=== PATIENT | male | born 1985 | race Caucasian/White ===

== ENCOUNTER 2025-02-04 16:58 | Observation (INO) | payer SELFPAY ==
[2025-02-04] MEDS ORDERED: Lidocaine 10 ML, Aluminum & Magnesium Hydroxide 30 ML SSW SCH (18:00)
[2025-02-04 18:02] LABS: #Basophils 0.05 10x3/uL (0.0-0.2); #Eosinophils Less than 0.03 10x3/uL (0.0-0.5); #Monocytes 0.62 10x3/uL (0.0-1.1); #Neutrophils 10.55 10x3/uL (1.5-8.4); %Basophils 0.4 % (0.0-2.0); %Eosinophils 0.0 % (0.0-6.0); %Lymphocytes 10.1 % (18.0-47.0); %Monocytes 5.0 % (0.0-10.0); %Neutrophils 84.2 % (40.0-75.0); Hematocrit 51.4 % (38.8-50.0); Hemoglobin 17.9 g/dL (13.5-17.5); Mean Corpuscular Hemoglobin 30.4 pg (27.0-33.0); Mean Corpuscular Volume 87.3 fL (81.2-95.1); Platelet Count 327 10x3/uL (150-450); Red Blood Cell (RBC) Count 5.89 10x6/uL (4.32-5.72); White Blood Cell (WBC) Count 12.52 10x3/uL (3.5-10.5)
[2025-02-04] MEDS ORDERED: Pantoprazole 40 MG VIAL ONE (18:02)
[2025-02-04] MEDS ORDERED: Ondansetron PF 4 MG/2 ML Vial ONE (18:02)
[2025-02-04] MEDS ORDERED: Lidocaine Viscous Sol 2% 15 ml UD Cup ONE (18:03)
[2025-02-04] MEDS ORDERED: Mag-Al 1200 mg/1200 mg/30 ML UDCUP ONE (18:03)
[2025-02-04 18:14] LABS: INR-International Normal Ratio 1.1; Prothrombin Time 11.5 sec (9.5-12.1)
[2025-02-04 18:20] LABS: ALT (SGPT) 24 U/L (Less than 45); AST (SGOT) 30 U/L (11-34); Albumin 4.8 g/dL (3.1-4.5); Alkaline Phosphatase 96 U/L (40-110); Anion Gap 20 mmol/L (10-20); BUN (Urea Nitrogen) 16 mg/dL (8.9-20.6); Bilirubin, Total 0.8 mg/dL (0.3-1.2); Calc. Creatinine Clearance 0 mL/min (70-130); Calcium 10.5 mg/dL (7.8-10.44); Carbon Dioxide 25 mmol/L (22-29); Chloride 98 mmol/L (98-107); Globulin 4.5 g/dL (2.4-3.5); Glucose 90 mg/dL (70-105); Lipase 24 U/L (8-78); Magnesium 2.2 mg/dL (1.6-2.6); Potassium 4.8 mmol/L (3.5-5.1); Sodium 138 mmol/L (136-145)
[2025-02-04 18:45] LABS: Troponin I Less than 0.010 ng/mL (< 0.028)
[2025-02-04] MEDS ORDERED: Ondansetron PF 4 MG/2 ML Vial IVP PRN (20:57)
[2025-02-05 06:29] LABS: Anion Gap 12 mmol/L (10-20); BUN (Urea Nitrogen) 13 mg/dL (8.9-20.6); Calc. Creatinine Clearance 102 mL/min (70-130); Calcium 8.3 mg/dL (7.8-10.44); Carbon Dioxide 21 mmol/L (22-29); Chloride 107 mmol/L (98-107); Glucose 144 mg/dL (70-105); Potassium 4.3 mmol/L (3.5-5.1); Sodium 136 mmol/L (136-145)
[2025-02-05 06:30] LABS: #Basophils Less than 0.03 10x3/uL (0.0-0.2); #Eosinophils Less than 0.03 10x3/uL (0.0-0.5); #Monocytes 0.17 10x3/uL (0.0-1.1); #Neutrophils 7.08 10x3/uL (1.5-8.4); %Basophils 0.2 % (0.0-2.0); %Eosinophils 0.0 % (0.0-6.0); %Lymphocytes 9.6 % (18.0-47.0); %Monocytes 2.1 % (0.0-10.0); %Neutrophils 87.5 % (40.0-75.0); Hematocrit 39.8 % (38.8-50.0); Hemoglobin 13.9 g/dL (13.5-17.5); Mean Corpuscular Hemoglobin 30.9 pg (27.0-33.0); Mean Corpuscular Volume 88.4 fL (81.2-95.1); Platelet Count 277 10x3/uL (150-450); Red Blood Cell (RBC) Count 4.50 10x6/uL (4.32-5.72); White Blood Cell (WBC) Count 8.10 10x3/uL (3.5-10.5)
[2025-02-05] MEDS: Enoxaparin 40 MG (0.4 mL) SYRINGE SC SCH (08:55)
[2025-02-05 12:10] VITALS: BP 103/69; TEMP 97.4
[2025-02-05 12:21] LABS: Hep B Surf Ag Non-Reactive S/CO (NonReactive)
[2025-02-05 18:12] LABS: HBSAB Concentration Less than 8.00 mIU/mL; Hep C IgG Ab NONREACTIVE S/CO (NonReactive); Hep C Index 0.12 S/CO (0-0.79)
[2025-02-05 23:17] LABS: Campy jejuni + coli by PCR Negative (Negative); STEC Shiga Toxin 1+2 Negative (Negative); Salmonella spp. by PCR Negative (Negative); Shigella spp + EIEC by PCR Negative (Negative)
== END 2025-02-05 14:38 | disposition home or self-care (01) ==
LOC: CSHERS 16:58 → CSHTELE 20:21
PROVIDERS: ADMIT Family Medicine; ATTEND Internal Medicine
DX: K50.012 Crohn's disease of small intestine with intestinal obstruction (principal); N17.9 Acute kidney failure, unspecified; E86.0 Dehydration; K52.9 Noninfective gastroenteritis and colitis, unspecified; E86.9 Volume depletion, unspecified; Z88.2 Allergy status to sulfonamides; Z88.1 Allergy status to other antibiotic agents; Z88.8 Allergy status to other drugs, medicaments and biological substances
CPT/HCPCS: 36415; 74177; 80048; 80053; 82274; 83690; 83735; 84484; 85025; 85610; 86480; 86706; 86803; 86850; 86900; 86901; 87340; 87505; 96374; 96375; 96376; G0378; J2270; J2405; J2470; J2919; J7120